=== PATIENT | female | born 1970 | race Caucasian/White ===

== ENCOUNTER 2016-06-18 04:36 | Emergency (ER) | payer BC ==
[~2016-06-18] VITALS: Ht 162.6 cm; Wt 90.7 kg
[2016-06-18 05:21] LABS: BILIRUBIN,URINE NEGATIVE (NEG); GLUCOSE,URINE NEGATIVE (NEG); NITRITE,URINE NEGATIVE (NEG); PROTEIN,URINE NEGATIVE (NEG-TRACE); UROBILINOGEN,URINE 0.2 mg/dL (0.2 mg/dL)
[2016-06-18 05:29] LABS: BACTERIA,URINE 0 /HPF (0-FEW); RBC,URINE TNTC /HPF (0-2)
[2016-06-18 05:31] LABS: CALCIUM 9.1 mg/dL (8.5-10.1); CREATININE 0.7 mg/dL (0.6-1.0); GFR 90.5; POTASSIUM 3.7 mmol/L (3.5-5.1)
[2016-06-18 05:37] LABS: ALBUMIN 3.1 g/dL (3.4-5.0); BASO % 1 % (0-3); EOS % 3 % (0-3); HEMATOCRIT 40.9 % (36.0-47.0); HEMOGLOBIN 14.1 g/dL (12.0-15.5); LYMPH # 1.8 x10^3/uL (1.0-4.8); LYMPH % 27 % (24-48); MEAN CORPUSCULAR HEMOGLOBIN 34 pg (25-35); MEAN CORPUSCULAR HGB CONC 34 g/dL (31-37); MEAN CORPUSCULAR VOLUME 97 fL (79-100); MONO % 11 % (0-9); NEUT % 58 % (31-73); PLATELET COUNT 270 x10^3/uL (140-400); RED BLOOD COUNT 4.21 x10^6/uL (3.50-5.40); RED CELL DISTRIBUTION WIDTH 12.2 % (11.5-14.5); TOTAL BILIRUBIN 0.5 mg/dL (0.2-1.0); TOTAL PROTEIN 6.1 g/dL (6.4-8.2); WHITE BLOOD COUNT 6.6 x10^3/uL (4.0-11.0)
--- NOTE | 2016-06-18 06:48 | ED.ADGEN ---
Past Medical History Past Medical History: Other Additional Past Medical Histor: VIT B12 AND VIT D DEFICIENCY Past Surgical History: No Surgical History Alcohol Use: Rarely Drug Use: None Adult General Chief Complaint Chief Complaint: CHEST PAIN HPI HPI Patient is a 45 year old woman, with no significant past medical history, who presents to the emergency department with a complaint of chest pain and shortness of breath associated nausea. Patient states that around 8:30 last night, she was seated and she noticed that she was experiencing some mild chest tightness and nausea, states it was a stabbing sensation in the chest, denies any radiation to her back or arms, states she felt slightly short of breath as a "I couldn't get a deep breath" with this feeling. She states it lasted for a few seconds and then resolve. She states that she got a might be indigestion. Patient states that she went to sleep, and then woke up around 3:30 in the morning and was experiencing the similar symptoms, she states she had mild light headedness, associated with shortness of breath, nausea, and stabbing chest pain which again lasted for a few seconds, and occurred intermittently over the next hour or so. She states that she has not had any recurrence of these symptoms since about 5:30 in the morning. She came to the ED for evaluation. Denies any symptoms at this time. Denies any recent travel or surgery, any history of DVT or PE in herself or family members, any swelling extremities, any drugs alcohol or cigarettes, any previous evaluation for cardiac or pulmonary disease. Patient states that she does have a family history of cardiac disease in her father who was in his early 50s, and a cousin who is 3 years older than she recently had an [place], also in grandparents. Patient is currently on her menses. She does not take any hormonal medications. Not taking any medication prior to coming to the ED. Review of Systems Review of Systems Constitutional: Denies fever or chills. [] Eyes: Denies change in visual acuity. [] HENT: Denies nasal congestion or sore throat. [] Respiratory: Denies cough, shortness of breath associated with sharp chest pain , located in the anterior chest, now resolved. Cardiovascular: Denies edema, complaining of anterior sharp chest pain lasting for a few seconds at a time. Associated with nausea and shortness of breath. GI: Denies abdominal pain, vomiting, bloody stools or diarrhea. [Nausea associated with chest pain.] : Denies dysuria. [] Musculoskeletal: Denies back pain or joint pain. [] Integument: Denies rash. [] Neurologic: Denies headache, focal weakness or sensory changes. [] Endocrine: Denies polyuria or polydipsia. [] Lymphatic: Denies swollen glands. [] Psychiatric: Denies depression or anxiety. [] Current Medications Current Medications Current Medications Medications (Trade) Dose Ordered Sig/Fely Start Time Stop Time Status Last Admin Dose Admin Aspirin (Children'S Aspirin) 324 mg 1X ONCE 06/18/16 07:00 06/18/16 07:01 DC 06/18/16 06:34 324 MG Allergies Allergies Allergies Coded Allergies Type Severity Reaction Last Updated Verified No Known Drug Allergies 06/18/16 No Physical Exam Physical Exam Constitutional: Well developed, well nourished, no acute distress, non-toxic appearance. [] HENT: Normocephalic, atraumatic, bilateral external ears normal, oropharynx moist, no oral exudates, nose normal. [] Eyes: PERRLA, EOMI, conjunctiva normal, no discharge. [] Neck: Normal range of motion, no tenderness, supple, no stridor. [] Cardiovascular:Heart rate regular rhythm, no murmur, S1, S2, rubs or gallops. No chest wall tenderness or crepitus, unable to reproduce symptoms with palpation. [] Lungs & Thorax: Bilateral breath sounds clear to auscultation, no wheezing, rhonchi, rales. No chest wall tenderness or crepitus as stated. [] Abdomen: Bowel sounds normal, soft, no tenderness, no rebound, rigidity, no guarding. No masses, no pulsatile masses. [] Skin: Warm, dry, no erythema, no rash. [] Back: No tenderness, no CVA tenderness. [] Extremities: No tenderness, no cyanosis, no clubbing, ROM intact, no edema. Negative Homans sign. [] Neurologic: Alert and oriented X 3, normal motor function, normal sensory function, no focal deficits noted. [] Psychologic: Affect normal, judgement normal, mood normal. [] Current Patient Data Vital Signs Vital Signs Date Time Temp Pulse Resp B/P Pulse Ox O2 Delivery O2 Flow Rate FiO2 06/18/16 08:01 78 20 125/57 96 06/18/16 04:45 98.0 Room Air 98.0 Lab Values Laboratory Tests Test 06/18/16 05:00 06/18/16 08:40 White Blood Count 6.6x10^3/uL (4.0-11.0) Red Blood Count 4.21x10^6/uL (3.50-5.40) Hemoglobin 14.1g/dL (12.0-15.5) Hematocrit 40.9% (36.0-47.0) Mean Corpuscular Volume 97fL (79-100) Mean Corpuscular Hemoglobin 34pg (25-35) Mean Corpuscular Hemoglobin Concent 34g/dL (31-37) Red Cell Distribution Width 12.2% (11.5-14.5) Platelet Count 270x10^3/uL (140-400) Neutrophils (%) (Auto) 58% (31-73) Lymphocytes (%) (Auto) 27% (24-48) Monocytes (%) (Auto) 11% (0-9) H Eosinophils (%) (Auto) 3% (0-3) Basophils (%) (Auto) 1% (0-3) Neutrophils # (Auto) 3.8x10^3uL (1.8-7.7) Lymphocytes # (Auto) 1.8x10^3/uL (1.0-4.8) Monocytes # (Auto) 0.7x10^3/uL (0.0-1.1) Eosinophils # (Auto) 0.2x10^3/uL (0.0-0.7) Basophils # (Auto) 0.0x10^3/uL (0.0-0.2) Urine Collection Type Unknown Urine Color Red Urine Clarity Cloudy Urine pH 6.0 Urine Specific [place] 1.015 Urine Protein Negativemg/dL (NEG-TRACE) Urine Glucose (UA) Negativemg/dL (NEG) Urine Ketones (Stick) Tracemg/dL (NEG) Urine Blood Large (NEG) Urine Nitrite Negative (NEG) Urine Bilirubin Negative (NEG) Urine Urobilinogen Dipstick 0.2mg/dL (0.2 mg/dL) Urine Leukocyte Esterase Moderate (NEG) Urine RBC Tntc/HPF (0-2) Urine WBC 1-4/HPF (0-4) Urine Bacteria 0/HPF (0-FEW) Sodium Level 143mmol/L (136-145) Potassium Level 3.7mmol/L (3.5-5.1) Chloride Level 108mmol/L (98-107) H Carbon Dioxide Level 27mmol/L (21-32) Anion Gap 8 (6-14) Blood Urea Nitrogen 10mg/dL (7-20) Creatinine 0.7mg/dL (0.6-1.0) Estimated GFR (Cockcroft-Gault) 90.5 BUN/Creatinine Ratio 14 (6-20) Glucose Level 101mg/dL (70-99) H Calcium Level 9.1mg/dL (8.5-10.1) Total Bilirubin 0.5mg/dL (0.2-1.0) Aspartate Amino Transferase (AST) 13U/L (15-37) L Alanine Aminotransferase (ALT) 19U/L (14-59) Alkaline Phosphatase 58U/L (46-116) Troponin I Quantitative < 0.017ng/mL (0.000-0.055) Total Protein 6.1g/dL (6.4-8.2) L Albumin 3.1g/dL (3.4-5.0) L Albumin/Globulin Ratio 1.0 (1.0-1.7) POC Troponin I 0.00ng/ml (<0.08) Laboratory Tests 06/18/16 05:00 Laboratory Tests 06/18/16 05:00 EKG EKG EC: Sinus rhythm, heart rate 85 bpm, upright axis, QTC of 427, CO 138, QRS of 78, patient with T-wave inversions noted in lead 3, mild flattening in aVF, no ST elevations or depressions, no other abnormalities identified. No prior for comparison. As interpreted by me. [] EC: Sinus rhythm, heart rate 63 beats minute, upright axis, QTC of 402, CO 120, QRS of 76, patient with T-wave inversions again noted in lead 3, no other abnormalities identified. As interpreted by me. Radiology/Procedures Radiology/Procedures [] [facility] [address] [place], [place] [id number] IMAGING REPORT Signed PATIENT: PETR KAPLAN ACCOUNT: [id number] : 1970 LOCATION: ER AGE: 45 SEX: F EXAM STATUS: REG ER ORD. PHYSICIAN: STORM FALCON MD REASON: chest pain X TONIGHT PROCEDURE: CHEST AP ONLY Portable chest, 06/18/2016: History: Chest pain The heart size and pulmonary vascularity are normal. The lungs are clear. There is no evidence of pleural fluid or pneumothorax. IMPRESSION: No acute cardiopulmonary abnormality is detected. DICTATED and SIGNED BY: MAJOR CRUZ MD DATE: 06/18/16713 CC: STORM FALCON MD; CHARLI BURGESS Course & Med Decision Making Course & Med Decision Making Pertinent Labs and Imaging studies reviewed. (See chart for details) Patient asymptomatic in the emergency room, initial ECG troponin and other lab for studies are concerning. Patient is PERC negative. I did discuss with patient to pathways of care, one would be admission to the hospital for additional and continued evaluation of cardiology, versus discharged home and prompt follow-up with cardiology. She has feeling the resources Dr. Cid, and states that she would rather go home, and follow up with him in the office, will be able to call on Monday for prompt follow-up. Patient in the ED for 4 hours, without recurrence of symptoms, 4 hour troponin is 0.0, repeat ECG is unchanged, patient is now been pain-free for more than 5 hours, without any recurrence of symptoms, with her atypical chest pain. Patient remains comfortable plan to go home, I did discuss findings as above and plan with Dr. Cid of cardiology, who requests the patient call his office on Monday morning to schedule a prompt follow-up. Patient given clear and detailed return and follow-up instructions with which she voiced understanding and agreement, discharged home in stable condition with plan as above. Dragon Disclaimer Dragon Disclaimer This electronic medical record was generated, in whole or in part, using a voice recognition dictation system. Departure Impression: Primary Impression: Chest pain Disposition: HOME, SELF-CARE Condition: IMPROVED Problem Qualifiers Primary Impression: Chest pain Chest pain type: unspecified Qualified Code: R07.9 - Chest pain, unspecified AUGUSTIN MELARA DO Jun 18, 2016 06:48
[2016-06-18] MEDS ORDERED: ASPIRIN 81 MG TAB.CHEW PO ONE (07:00)
--- NOTE | 2016-06-18 07:17 | RAD ---
Portable chest, 06/18/2016: History: Chest pain The heart size and pulmonary vascularity are normal. The lungs are clear. There is no evidence of pleural fluid or pneumothorax. IMPRESSION: No acute cardiopulmonary abnormality is detected.
[2016-06-18 08:01] VITALS: BP 125/57
--- NOTE | 2016-06-18 12:28 | EKG ---
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
--- NOTE | 2016-06-18 13:01 | EKG ---
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
== END 2016-06-18 09:10 | disposition home or self-care (01) ==
LOC: ER 04:36
DX: R07.89 Other chest pain (principal); R06.02 Shortness of breath; R11.0 Nausea
CPT/HCPCS: 36415; 71010; 80053; 81001; 84484; 85027; 87086; 93005; 99285-25